=== PATIENT | female | born 1945 | race Caucasian/White ===

== ENCOUNTER → 2020-07-19 | Outpatient (CLI) | payer MEDICARE ==
[~2020-07-19] MED LIST: ALPR0.5T7 PO; CBD oil PO; FLUO20TA25 PO
[2020-07-19 12:38] LABS: BASOPHILS % (AUTO) 1 % (0-1); EOSINOPHILS % (AUTO) 3 % (1-7); LYMPHOCYTES % (AUTO) 15 % (22-44); MEAN CORPUSCULAR HEMOGLOBIN 31.5 pg (27.0-34.8); MEAN CORPUSCULAR HGB CONC 34.3 g/dL (32.4-35.8); MEAN PLATELET VOLUME 7.8 fL (7.4-10.4); MONOCYTES % (AUTO) 8 % (2-9); NEUTROPHILS % (AUTO) 74 % (42-75); PLATELET COUNT 384 x10^3/uL (130-400); RED BLOOD COUNT 4.75 x10^6/uL (3.82-5.3); RED CELL DISTRIBUTION WIDTH 13.3 % (9.6-15.2)
[2020-07-19 12:39] LABS: MD NO
[2020-07-19 12:44] LABS: INTERNATIONAL NORMALIZED RATIO 0.96 (0.93-1.1); PROTHROMBIN TIME 10.3 Seconds (9.6-11.5)
[2020-07-19 12:48] LABS: ALBUMIN 3.8 g/dL (3.4-5.0); ANION GAP 5 mmol/L (5-15); CALCIUM 9.1 mg/dL (8.5-10.1); CHLORIDE 105 mmol/L (98-107)
[2020-07-19 12:52] LABS: ALANINE AMINOTRANSFERASE 21 U/L (12-78); ALKALINE PHOSPHATASE 79 U/L (45-117); BILIRUBIN,TOTAL 0.6 mg/dL (0.2-1.0); CREATININE 0.74 mg/dL (0.55-1.02); TOTAL PROTEIN 7.5 g/dL (6.4-8.2)
== END | disposition home or self-care (01) ==
LOC: STAR 11:14
PROVIDERS: ATTEND Orthopaedic Surgery
DX: Z01.810 Encounter for preprocedural cardiovascular examination (principal); Z01.818 Encounter for other preprocedural examination; M25.551 Pain in right hip; M16.11 Unilateral primary osteoarthritis, right hip; Z20.822 Contact with and (suspected) exposure to COVID-19; Z79.01 Long term (current) use of anticoagulants
CPT/HCPCS: 36415; 80053; 83036; 85025; 85610; 85730; 87081; 87147; 93005; U0003

== ENCOUNTER 2020-07-23 11:12 | Day surgery (SDC) | payer MEDICARE ==
[~2020-07-23] VITALS: Ht 162.6 cm; Wt 48.8 kg
[~2020-07-23 11:12] MED LIST changes: +ACETAMINOPHEN 650 MG/20.3 ML UDC PO PRN; +BISACODYL 10 MG SUPP PR PRN; +CEFAZOLIN PMX 2GM/50ML 50 ML IVPB SCH; +DIPHENHYDRAMINE 50 MG CAPSULE PO PRN; +DOCUSATE 100 MG CAPSULE PO SCH; +EPINEPHRINE 1 MG/ML, 1ML ONE; +HYDROcodone/APAP 5/325 TABLET PO PRN; +KETOROLAC 60 MG/2 ML ONE; +MAGNESIUM HYDROXIDE 8%, 30ML UDC PO PRN; +NS + 20MEQ KCL 1,000 ML IV SCH; +ONDANSETRON 2MG/ML, 2ML IV PRN; +ONDANSETRON 4 MG TABLET PO PRN; +OXYcodone IR 5MG TABLET PO PRN; +ROPIvacaine/PF 0.5%, 20 ML ONE; +ROPIvacaine/PF 0.5%, 30 ML ONE; +SENNA/DOCUSATE TABLET PO PRN; +SODIUM CHLORIDE 0.9% 50 ML ONE; +TRANEXAMIC ACID 100 MG/ML, 10ML ONE; +VANCOMYCIN 1,000 MG ONE; +ZOLPIDEM 5MG TABLET PO PRN
[2020-07-23 11:54] VITALS: BP 134/80
[2020-07-23] MEDS ORDERED: CHLORHEXIDINE 15 ML UDC PO ONE (12:00)
[2020-07-23] MEDS ORDERED: LACTATED RINGERS 1,000 ML IV SCH (12:00)
[2020-07-23] MEDS ORDERED: GABAPENTIN 300 MG CAPSULE PO ONE (12:00)
[2020-07-23] MEDS ORDERED: ACETAMINOPHEN 500 MG TABLET PO ONE (12:00)
[2020-07-23] MEDS ORDERED: MIDAZOLAM 1 MG/ML, 2ML ONE (12:03)
[2020-07-23] MEDS ORDERED: FENTANYL PF 250 MCG/5ML ONE (12:23)
[2020-07-23] MEDS ORDERED: PROPOFOL 10 MG/ML, 20ML ONE (12:36)
[2020-07-23] MEDS ORDERED: ROCURONIUM 10MG/ML,5ML ONE (12:36)
[2020-07-23] MEDS ORDERED: ONDANSETRON 2MG/ML, 2ML ONE (12:37)
[2020-07-23] MEDS ORDERED: CEFAZOLIN 1,000 MG ONE ×2 (12:37)
[2020-07-23] MEDS ORDERED: DEXAMETHASONE 4 MG/ML, 1ML ONE ×2 (12:37)
[2020-07-23] MEDS ORDERED: LIDOCAINE-MPF 2% ,5ML ONE (12:37)
[2020-07-23] MEDS ORDERED: GLYCOPYRROLATE 0.2MG/1ML, 5ML ONE (14:29)
[2020-07-23] MEDS ORDERED: NEOSTIGMINE 1 MG/ML, 10ML ONE (14:29)
[2020-07-23] MEDS ORDERED: ACETAMINOPHEN 325 MG TABLET PO PRN (15:30)
[2020-07-23] MEDS ORDERED: MEPERIDINE/PF 25MG/0.5ML IVPush PRN (15:30)
[2020-07-23] MEDS ORDERED: ONDANSETRON 2MG/ML, 2ML IVPush PRN (15:30)
[2020-07-23] MEDS ORDERED: PROMETHAZINE 25 MG/ML, 1ML IVPush PRN (15:30)
[2020-07-23] MEDS ORDERED: DIPHENHYDRAMINE 50 MG/ML, 1ML IVPush PRN (15:30)
[2020-07-23] MEDS ORDERED: FENTANYL PF 100 MCG/2ML ONE (15:48)
[2020-07-23] MEDS: FENTANYL PF 100 MCG/2ML IV PRN ×3 (15:50→16:24)
[2020-07-23] MEDS ORDERED: OXYcodone 5 MG/5 ML ORAL.SOL UDC ONE ×2 (15:59→16:22)
[2020-07-23] MEDS: OXYcodone 5 MG/5 ML ORAL.SOL UDC PO PRN ×2 (16:00→16:23)
[2020-07-23] MEDS ORDERED: HYDROmorphone 1 MG/ML, 1ML INJ ONE (16:22)
[2020-07-23] MEDS: HYDROmorphone 1 MG/ML, 1ML INJ IVPush PRN ×2 (16:24→16:30)
[2020-07-23] MEDS ORDERED: ASPIRIN 81 MG TABLET EC PO SCH (18:00)
[2020-07-24] MEDS ORDERED: DEXAMETHASONE 4 MG/ML, 1ML IVPush SCH (06:00)
[2020-07-24] MEDS ORDERED: FLUOXETINE HCL 20 MG CAPSULE PO SCH (09:00)
== END 2020-07-23 18:04 | disposition home or self-care (01) ==
LOC: OUT 11:12
PROVIDERS: ATTEND Orthopaedic Surgery
DX: M16.11 Unilateral primary osteoarthritis, right hip (principal); M25.751 Osteophyte, right hip; Z79.899 Other long term (current) drug therapy; Z82.61 Family history of arthritis; Z82.3 Family history of stroke
CPT/HCPCS: 27130; 72170; 73501; 97162; C1713; C1776; J0171; J0690; J1100; J1170; J1885; J2250; J2405; J2704; J2710; J2795; J3010; J3370; J7120; 76000